=== PATIENT | female | born 1970 | race Caucasian/White ===

== ENCOUNTER 2016-10-11 13:13 | Emergency (ER) | payer OTHER ==
[~2016-10-11] VITALS: Ht 157.5 cm; Wt 57.8 kg
[~2016-10-11 13:13] MED LIST: BUPR150T9 PO; DOXY100T2 PO; LAMO200T2 PO; MESA1.2T2 PO; TRAZ-115 PO
[2016-10-11 13:26] VITALS: BP 103/63; PULSE 124; RESP 14; O2SAT 100
--- NOTE | 2016-10-11 13:41 | ED.REPORT ---
HPI-Abd Pain F 40 and Over Date of Service Oct 11, 2016 ED Provider: Dandre Somers MD Patient is a 46 year old female with a history of chronic ulcerative colitis and depression who presents to the ED complaining of a colitis flare up for the past two weeks. Associated symptoms include constant diarrhea, an intermittent cough, mucousy hematochezia, decreased appetite, nausea since last night and abdominal pain. She denies vomiting, dysuria or fever. Patient reports that she has been experiencing pain for the past few months but the past two weeks have been progressively worse. She was seen at Dr. Cordoba's office and sent to the ED for further evaluation. The patient states that she has been under a lot of stress lately and thinks that may have contributed to her flare up. Patient currently takes daily Doxycycline. Nursing Notes Stated Complaint: COLITIS Chief Complaint: Female Abdominal Pain Nursing Notes Reviewed: Yes Allergies: Coded Allergies: erythromycin base (Verified Allergy, Unknown, 03/21/15) Scheduled Bupropion HCl (Zyban) 150 Mg Tablet.er 150 MG PO DAILY Doxycycline Hyclate (Doxycycline Hyclate) 100 Mg Tablet 100 MG PO BID Lamotrigine (Lamotrigine) 200 Mg Tablet 200 MG PO DAILY Mesalamine (Lialda) 1.2 Gm Tablet. 4.8 GM PO DAILY Trazodone (Trazodone) 50 Mg Tablet 50 MG PO HS General Time Seen by MD: 13:40 Chief Complaint Other (colitis flare up) Hx Obtained From: Patient Arrived By: Walk-in Sudden in Onset?: No Onset Occurred: More than a week ago... (1 month) Symptom Duration: Since onset Progression since Onset: Gradually worsening Location: : Diffuse Quality: Aching Severity: Current: Moderate Associated with: Reports: Nausea, Denies: Dysuria, Vomiting Recent Healthcare: No recent doctor visit, No recent hospitalization Similar Sx Previous: Yes Past Medical History Past Medical History Notes: Hemoglobin from 2014: 15.7 Past Medical History chronic colitis depression Past Surgical History none reported Smoking History Never Smoker Social History Alcohol Use: Denies alcohol use Drug Use: Denies drug use, THC Other Social History: Good social support, Ambulatory Status Independent Review of Systems decreased appetite Constitutional: Denies: Fever Respiratory: Reports: Non-productive cough, Denies: Shortness of breath GI: Reports: Abdominal pain, Diarrhea, Hematochezia, Mucousy stool, Nausea, Denies: Vomiting Female: Denies: Dysuria, Urinary frequency, Urinary urgency Complete sys rev & neg: except as marked. Psychiatric: Reports: Stress Physical Exam Vital Signs Vital Signs (First) Date Time Temp Pulse Resp B/P Pulse Ox O2 Delivery O2 Flow Rate FiO2 10/11/16 13:26 37.2 124 14 103/63 100 Room Air Initial VS: Reviewed General/Constitutional: Awake, Alert Distress / Hydration: Positive: Distress moderate Respiratory / Chest: Atraumatic, Breath sounds NL, Breath sounds = bilat, No respiratory distress Cardiovascular: Regular rhythm, Heart sounds NL Heart Rate / Rhythm: Positive: Tachycardia Abdomen: Atraumatic, Soft Tenderness/Guarding/Rebound: Positive: Tender diffuse Back: Atraumatic, Full range of motion Head / Eyes: Atraumatic, Normocephalic, PERRL, EOMI Skin: Atraumatic, Color NL, No rash, Warm, Dry Neurologic: Oriented X3, Speech NL, No motor deficits, No sensory deficits Psychiatric: Affect NL, Mood NL Interpretation & Diagnostics Lab Results Interpretation Result Diagram: 10/11/16 1355 10/11/16 1355 Test 10/11/16 13:55 10/11/16 14:46 White Blood Count 10.8th/mm3 (3.8-10.1) Red Blood Count 3.34mil/mm3 (3.90-5.20) Hemoglobin 8.7g/dL (12.0-15.6) Hematocrit 27.8% (35.0-46.0) Mean Corpuscular Volume 83.2fL (81-100) Mean Corpuscular Hemoglobin 26.0pg (27.0-35.0) Mean Corpuscular Hemoglobin Concent 31.3% (32.0-37.0) Red Cell Distribution Width 15.5% (12.3-15.4) Platelet Count 465bil/L (150-400) Neutrophils (%) (Auto) 77.3% (40-74) Lymphocytes (%) (Auto) 10.2% (14-46) Monocytes (%) (Auto) 10.5% (4-12) Eosinophils (%) (Auto) 1.2% (0-5) Basophils (%) (Auto) 0.4% (0-3) Sodium Level 135mEq/L (134-144) Potassium Level 3.4mEq/L (3.5-5.2) Chloride Level 96mEq/L (97-108) Carbon Dioxide Level 23mmol/L (18-29) Blood Urea Nitrogen 5mg/dL (6-24) Creatinine 0.84mg/dL (0.57-1.00) Estimat Glomerular Filtration Rate 104mL/min (>59) Glucose Level 100mg/dL (60-99) Calcium Level 8.1mg/dL (8.5-10.1) Magnesium Level 2.0mg/dL (1.6-2.6) Total Bilirubin 0.3mg/dL (0.0-1.2) Aspartate Amino Transf (AST/SGOT) 56U/L (0-50) Alanine Aminotransferase (ALT/SGPT) 74U/L (0-32) Alkaline Phosphatase 65U/L (25-150) Total Protein 6.4g/dL (6.4-8.4) Albumin 2.9g/dL (3.4-5.0) Lipase 22U/L (13-60) Hold Galvan Top Tube Received (Received) Hold Urine Received (Received) Lab Results Interpretation: Verbally spoke with the mechanical test technician who reported that the stool culture was negative. Re-Eval/Medical Decision Med Decision/Clinical Course She presents with an ulcerative colitis flare without obvious infectious problem. She is anemic but not at a transfusion level. Her vital signs are normal. She wishes to go home. Close follow-up and discharge instructions are arranged with the help of her personal computer network engineer. Return and follow-up precautions are given. Source of Hx: Old records Re-Evaluation/Progress #1: Time of Eval: 15:00 Patient Status: Mild relief Re-Evaluation/Progress Note: Discussed lab results and plan for further evaluation. Re-Evaluation/Progress #2: Time of Eval: 17:38 Re-Evaluation/Progress Note: Patient was requesting food. Informed her that we were waiting for the stool results to decide course of treatment. Re-Evaluation/Progress #3: Time of Eval: 18:36 Re-Evaluation/Progress Note: Discussed results and plan for discharge. The patient understands and agrees to the plan for discharge. All questions were addressed. Consultation : Referral / Consult Name: Gustavo Cordoba MD Consulted With: On-call physician (GI) Call Returned at: 18:21 Affiliate Manager: Agrees with eval, Agrees with plan Note: Consult with Dr. Cordoba who recommends the patient start a Prednisone taper, Iron and Lialda. Counseled Regarding: Diagnosis, Lab results, Need for follow-up, When/why to return to ED Discharge & Departure Primary Impression: Chronic colitis Additional Impressions: Abdominal pain Abdominal location: generalized Qualified Code: R10.84 - Generalized abdominal pain Diarrhea Diarrhea type: unspecified type Qualified Code: R19.7 - Diarrhea, unspecified Disposition: Home Discharge Condition All VS Reviewed: Yes Condition: Stable Patient Instructions: Colitis (ED) Additional Instructions: Thank you for trusting us with your care. Your stool test came back negative, which means you don't have an infection. Take the Prednisone taper. You should also take 2 Lialda pills twice a day Take 325mg of Iron twice a day. You should stick to a bland diet. You should call Dr. Cordoba no later than Saturday to schedule a follow up appointment for next week. Please return to the emergency department if you develop any new or worsening symptoms including fever, vomiting, or increasing abdominal pain Referrals: Sanjuana Santiago ND (PCP) Samira Attestation Portions of this note were transcribed by Mabel Petty. I, Dr. Coleen Montoya personally performed the history, physical exam and medical decision-making; I reviewed and confirmed the accuracy of the information in the transcribed note. Signed by: Samira Rocha, 10/11/16 and 1840 copies to: Sanjuana Santiago ND, Timothy S DO Oct 11, 2016 13:40 Nathaly Petty Oct 11, 2016 13:58
[2016-10-11] MEDS ORDERED: 0.9% Sodium Chloride 1,000 ML IV SCH ×2 (14:00)
[2016-10-11] MEDS ORDERED: Ondansetron 2 mg/mL 2 mL Inj IVPUSH PRN (14:00)
[2016-10-11 14:04] LABS: BASOPHILS % (AUTO) 0.4 % (0-3)
[2016-10-11 14:12] LABS: EOSINOPHILS % (AUTO) 1.2 % (0-5); MONOCYTES % (AUTO) 10.5 % (4-12); Mean Corpuscular Volume 83.2 fL (81-100); NEUTROPHILS % (AUTO) 77.3 % (40-74); Platelet Count 465 bil/L (150-400)
[2016-10-11 15:36] VITALS: BP 118/67; PULSE 87; RESP 16; O2SAT 99
[2016-10-11] MEDS ORDERED: MESA1.2T2 PO (18:45)
[2016-10-11] MEDS ORDERED: PRE10 PO (18:45)
[2016-10-11] MEDS ORDERED: FERR325C PO (18:45)
[2016-10-11] MEDS ORDERED: predniSONE 20 mg Tablet PO ONE (18:45)
[2016-10-11 18:57] VITALS: BP 118/72; PULSE 81; RESP 16; O2SAT 99
== END 2016-10-11 18:58 | disposition home or self-care (01) ==
LOC: SED 13:13
DX: K52.9 Noninfective gastroenteritis and colitis, unspecified (principal); R10.84 Generalized abdominal pain; F32.9 Major depressive disorder, single episode, unspecified; Z88.1 Allergy status to other antibiotic agents
CPT/HCPCS: 36415; 80053; 81025; 83690; 83735; 85025; 87507; 96360; 99284; J7030